=== PATIENT | female | born 1945 | race Caucasian/White ===

== ENCOUNTER 2019-04-06 21:19 | Emergency (ER) | payer MEDICARE, OTHER ==
[~2019-04-06] VITALS: Ht 154.9 cm; Wt 70.8 kg
[~2019-04-06 21:19] MED LIST: ALENDRONATE; ALLEGRA60 MG PO; LOSARTAN PO; NEXIUM PO; SYNTHROID50 MCG PO; ZANTAC PO
[2019-04-06] MEDS ORDERED: ALL DAY ALLERGY10 M3 PO (21:29)
[2019-04-06] MEDS ORDERED: HYDROCHLOROTH12.5 M1 PO (21:29)
[2019-04-06] MEDS ORDERED: ASPIR 8181 M1 PO (21:30)
[2019-04-06] MEDS ORDERED: VITAMIN D2000 UNIT PO (21:31)
[2019-04-06] MEDS ORDERED: PROBIOTIC1 EAC1 PO (21:31)
[2019-04-06 23:01] VITALS: BP 138/80
== END 2019-04-06 22:38 | disposition home or self-care (01) ==
LOC: M.ERS 21:19
DX: S80.02XA Contusion of left knee, initial encounter (principal); W10.9XXA Fall (on) (from) unspecified stairs and steps, initial encounter; Y93.89 Activity, other specified; Y92.89 Other specified places as the place of occurrence of the external cause; Y99.8 Other external cause status; I10 Essential (primary) hypertension; K21.9 Gastro-esophageal reflux disease without esophagitis; Z90.710 Acquired absence of both cervix and uterus; Z96.652 Presence of left artificial knee joint; Z88.5 Allergy status to narcotic agent; Z88.6 Allergy status to analgesic agent